=== PATIENT | female | born 1985 | race Caucasian/White ===

== ENCOUNTER 2017-04-07 22:19 | Emergency (ER) | payer OTHER ==
[2017-04-07 22:27] VITALS: BP 138/91
[2017-04-07] MEDS ORDERED: FAMOTIDINE 20 MG TABLET PO ONE (22:46)
[2017-04-07] MEDS ORDERED: predniSONE 20 MG TABLET PO ONE (22:46)
--- NOTE | 2017-04-07 22:46 | ERNOTE ---
Integumentary HPI - Narrative Date of Service: 04/07/17 - General Presenting Symptoms: rash Time Seen by Provider: 04/07/17 22:40 Source: patient Exam Limitations: no limitations - Immun/Allergies/Home Medications Immunizations: IMMUNIZATION HX Immunizations Up to Date Yes History of Influenza Vaccine Yes Allergies/Adverse Reactions: Allergies Allergy/AdvReac Type Severity Reaction Status Date / Time Sulfa (Sulfonamide Allergy Mild Hives Verified 04/07/17 22:27 Antibiotics) [Sulfa(Sulfonamide Antibiotics)] Home Medications: HOME MEDICATIONS Citalopram Hydrobromide [Celexa] 20 mg PO DAILY 01/15/13 [Last Taken 02/14/15 20 mg] Multivitamin [Multivitamins] 1 each PO DAILY 01/15/13 [Last Taken 02/14/15 1 tablet] Topiramate [Topamax] 50 mg PO DAILY 01/15/13 [Last Taken 02/14/15 50 mg] Levonorgestrel-Ethin Estradiol [Lutera-28 Tablet] 1 each PO DAILY 02/15/15 [ Last Taken 02/14/15 1 tab] diphenhydrAMINE HCL [Benadryl] 50 mg PO HS PRN 02/15/15 [Last Taken 02/14/15 1 tablet] - Pain Pain Score: 0 - History of Present Illness Narrative: 5 days ago was gardening and cutting some tall grass at her home. She developed a rash on her forearms bilaterally. It was localized and remained so. Over the period it has become more intensely puritic. Now has some vesicles and serous drainage. She says lesions started out as scratches. Location: Reports: upper extremity Quality: Reports: itching Severity: moderate Prior Treatment: Reports: other - Has been taking 50 mg benadryl every 4 hours and topical hydrocortisone cream without relief. Review of Systems - Review of Systems Constitutional: Present: no symptoms reported EYE: Present: no symptoms reported ENT: Present: no symptoms reported Respiratory: Present: no symptoms reported Cardiology: Present: no symptoms reported Gastrointestinal/Abdominal: Present: no symptoms reported Musculoskeletal: Present: no symptoms reported Neurological: Present: no symptoms reported - Patient's Past Medical History Patient History - Medical: Migraines Patient History - Cancer: No Hx of Cancer Patient History - Surgical Procedures: Appendectomy, Cholecystectomy Patient History - Other: None - Family History Mom Family History - Cardiac/Respiratory: No pertinent hx Dad Family History - Cardiac/Respiratory: Hypertension Grandfather on Dad's side Family History - Medical: Family History - Cardiac/Respiratory: Myocardial Infarction - Social History Living Situations: home Abuse History: No History of abuse Psych History: No pertinent hx Smoking Status: Never smoker Patient requests Smoking Cessation Consult: No Initiate information on Smoking Cessation: No Alcohol Use: occasionally Drug Use: none - Immunizations Immunizations Up to Date: Yes History of Influenza Vaccine: Yes Physical Exam - Physical Exam General Appearance: Present: wd/wn, alert, no apparent distress Eye Exam: Normal inspection: bilateral Ears, Nose, Throat: Present: normal ENT inspection Neck: Present: normal inspection Respiratory: Present: no respiratory distress, normal breath sounds, lungs clear Cardiovascular/Chest: Present: regular rate, rhythm Extremity Exam: Present: other - Bilateral volar forearm linear raised erythematous cicumscribed rash with small interspersed vesicles. Neurological Exam: Present: alert, normal mood/affect, no motor/sensory deficits ED Progress - Vital Signs Vital Signs: Vital Signs 04/07/17 22:23 Temperature 36.6 C Pulse Rate 85 Respiratory 18 Rate Blood Pressure 138/91 O2 Sat by Pulse 100 Oximetry - Progress/Reassessment Chief Complaint: Rash Plan - Plan Plan: Continue benadryl. Use hydrocortison ointment. May add calamide cream Take pepcid 20 mg bid and prednisone 40 mg x 2 days then 20 mg x 2 days then 10 mg x 1 day then DC Departure Clinical Impression: Rash of unknown cause - Departure Disposition: Home self-care Condition: Good Instructions: Contact Dermatitis, Rjop-[id number] Additional Instructions: Continue benadryl Use pepcid 20 mg twice a day for 3 days. Use cortisone ointment over area May add calamide as needed Take prednisone 40 mg daily x 2 days then 20 mg daily x 2 days, then 10 mg x 1 day then DC Follow up with PCP if not improved. Referrals: Arnulfo Hamm MD [Primary Care Provider] -
[2017-04-07] MEDS ORDERED: FAMOTIDINE 20 MG TABLET ONE (22:48)
[2017-04-07] MEDS ORDERED: predniSONE 20 MG TABLET ONE (22:48)
== END 2017-04-07 23:01 | disposition home or self-care (01) ==
LOC: ER 22:19
DX: R21 Rash and other nonspecific skin eruption (principal)

== ENCOUNTER 2019-02-15 04:56 | Inpatient (IN) ==
--- NOTE | 2019-02-14 10:21 | HP ---
Chief Complaint - Chief Complaint Date of Service: 02/14/19 Time of Service: 10:12 Chief Complaint: C/S for breech presentation History of Present Illness: 34 yo at 38 6/7 wks scheduled for primary c/s tomorrow am due to persistent breech presentation. This complicated by maternal history of congenital heart defect (VSD vs ASD) with surgical repair and resulting murmur and arrhythmia. 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 [id number]. [place] teeth extracted Onset Date: ~2003 Surgical History: Surgical History (Updated 07/26/18 @ 11:40 by North Mondragon DO) History of heart surgery (Chronic) H/O arthroscopic knee surgery Onset Date: ~2004 Right-x2, 2005, 2006 H/O dilation and curettage Onset Date: 11/25/10 D&C, and Suction [place] 06/29/11- Missed H/O heart surgery Onset Date: ~1991 ASD repair H/O nasal septoplasty Onset Date: ~2006 Hx laparoscopic cholecystectomy Onset Date: 10/27/11 Tinguely Hx of appendectomy Onset Date: 11/25/10 Tinguely Suction Curettage Onset Date: 06/29/11 Family History: Family History (Updated 07/26/18 @ 10:39 by Shelly Trinidad RN) Grandfather CHF (congestive heart failure) Sister Asthma Brother Asthma Father Hypertension Hypercholesteremia Grandmother Hypertension COPD (chronic obstructive pulmonary disease) Mother Alive and well Grandfather Lung cancer Grandmother COPD (chronic obstructive pulmonary disease) Other Heart disease Social History: Preferred Language Egyptian Smoking Status Never smoker Abuse History No History of abuse Psych History No pertinent hx (Last Updated 02/14/19 @ 09:28 by North Mondragon DO) No Social History Section defined Review Of Systems (GEN) - Review of Systems Generalized/Overall Review: Present: No Symptoms Reported EENTM: Present: No Symptoms Reported Respiratory: Present: No Symptoms Reported Cardiac: Present: No Symptoms Reported Abdominal: Present: No Symptoms Reported Genitourinary: Present: No Symptoms Reported Musculoskeletal: Present: No Symptoms Reported Neurological: Present: Numbness, Parasthesia, Tingling - carpal tunnel s/s R>L Skin: Present: Other - tight from edema Endocrine: Present: No Symptoms Reported Immunizations: IMMUNIZATION HX Immunizations Up to Date Yes History of Influenza Vaccine Yes Allergies/Adverse Reactions: Allergies Allergy/AdvReac Type Severity Reaction Status Date / Time Sulfa (Sulfonamide Allergy Mild Hives Verified 02/14/19 09:04 Antibiotics) [Sulfa(Sulfonamide Antibiotics)] house dust mite Allergy Rhinitis Verified 02/14/19 09:04 meloxicam [From Mobic] Allergy Generalized Verified 02/14/19 09:04 edema mold Allergy Rhinitis Verified 02/14/19 09:04 Home Medications: HOME MEDICATIONS diphenhydrAMINE HCL [Benadryl] 50 mg PO HS PRN 02/15/15 [Last Taken 02/14/15 1 tablet] folic acid 1 mg tablet 1 mg PO DAILY 07/26/18 [Last Taken Unknown] vitamin,calcium,pkzijacv-kztg-kqzok acid tablet 1 tab PO DAILY 07/26/18 [Last Taken Unknown] breast pump See Dose Instructions .ROUTE .MEDSUPPLY #1 ea 09/10/18 [Last Taken Unknown] vitamin B complex tablet 1 tab PO DAILY 09/13/18 [Last Taken Unknown] Exam - Exam Vital Signs: 02/14/19 Height 1.66 m 02/14/19 Weight 90.8 kg 02/14/19 Body Mass Index (BMI) 32.9 02/14/19 Blood Pressure 135/84 02/14/19 Blood Pressure Position Sitting 02/14/19 Respiratory Rate 12 02/14/19 Pulse Rate 83 02/14/19 Temperature 36.6 C 02/14/19 Temperature Source Tympanic 02/14/19 O2 Sat by Pulse Oximetry 100 02/14/19 Oxygen Delivery Method room air Constitutional: Present: Alert, Oriented x3, Cooperative, No distress ENT Exam: Present: hearing grossly normal Neck: Present: non-tender. Absent: lymphadenopathy (R), lymphadenopathy (L) Breasts: Present: Exam deferred Respiratory: Present: lungs clear, no respiratory distress Cardiovascular/Chest: Present: normal peripheral pulses, regular rate, rhythm, edema Abdomen: Present: soft, nontender, no rebound tenderness, other - gravid /Rectal: Present: Exam deferred Extremity: Present: no calf tenderness, lower extremity edema - 2+ Skin Exam: Present: normal color, warm/dry, no cyanosis Neurologic: Present: alert, normal mood/affect, oriented x 3 Appearance: Present: appropriate appearance, appropriate insight Eye contact: Present: cooperative, good eye contact Thoughts: Present: normal thought pattern Assessment/Plan - Assessment/Plan (1) Breech presentation, no version Assessment: Admit for primary LTCS. All questions answered. Surgery scheduled for 02/15/19 am. Problem: Acute (2) History of heart surgery Problem: Chronic
[2019-02-15] MEDS ORDERED: RINGER'S SOLUTION,LACTATED 1,000 ML IV PRN ×2 (04:57)
[2019-02-15] MEDS ORDERED: ceFAZolin SODIUM/DEXTROSE,ISO 2 GM/50 ML BAG IV ONE (04:57)
[2019-02-15] MEDS ORDERED: OXYTOCIN 20 UNITS in RINGER'S SOLUTION,LACTATED 1,000 ML IV ONE (04:57)
--- NOTE | 2019-02-15 07:04 | ANES ---
Anesthesia Pre Procedure Eval HOME MEDICATIONS diphenhydrAMINE HCL [Benadryl] 50 mg PO HS PRN 02/15/15 [Last Taken 02/14/15 1 tablet] folic acid 1 mg tablet 1 mg PO DAILY 07/26/18 [Last Taken Unknown] vitamin,calcium,dhabfnef-cszo-ijmtd acid tablet 1 tab PO DAILY 07/26/18 [Last Taken Unknown] breast pump See Dose Instructions .ROUTE .MEDSUPPLY #1 ea 09/10/18 [Last Taken Unknown] vitamin B complex tablet 1 tab PO DAILY 09/13/18 [Last Taken Unknown] Allergies/Adverse Reactions: Allergies Allergy/AdvReac Type Severity Reaction Status Date / Time Sulfa (Sulfonamide Allergy Mild Hives Verified 02/15/19 05:08 Antibiotics) [Sulfa(Sulfonamide Antibiotics)] house dust mite Allergy Rhinitis Verified 02/15/19 05:08 meloxicam [From Mobic] Allergy Generalized Verified 02/15/19 05:08 edema mold Allergy Rhinitis Verified 02/15/19 05:08 - Planned Procedure Planned Procedure: Section Medication List Reviewed:: Yes Allergies Verified: Yes Medical History (Updated 02/14/19 @ 10:21 by North Mondragon DO) Hx of migraines (Chronic) Seasonal allergic rhinitis Allergy to Beets Onset Date: Unknown Hives Arrhythmia Onset Date: Unknown Heart murmur Onset Date: Unknown IBS (irritable bowel syndrome) Onset Date: Unknown Joint pain Onset Date: Unknown Migraine Onset Date: 10/12/12 Tattoo Onset Date: Unknown Wears glasses Onset Date: Unknown Appendicitis Onset Date: 11/25/10 Atrial septal defect Onset Date: ~1991 Repaired in [place] 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 [id number]. [place] teeth extracted Onset Date: ~2003 Surgical History (Updated 02/14/19 @ 10:21 by North Mondragon DO) History of heart surgery (Chronic) H/O arthroscopic knee surgery Onset Date: ~2004 Right-x2, 2005, 2006 H/O dilation and curettage Onset Date: 01/27/11 D&C, and Suction [place] 06/29/11- Missed H/O heart surgery Onset Date: ~1991 ASD repair H/O nasal septoplasty Onset Date: ~2006 Hx laparoscopic cholecystectomy Onset Date: 10/27/11 Tinguely Hx of appendectomy Onset Date: 11/25/10 Tinguely Suction Curettage Onset Date: 06/29/11 Family History (Updated 07/26/18 @ 10:39 by Shelly Trinidad RN) Grandfather CHF (congestive heart failure) Sister Asthma Brother Asthma Father Hypertension Hypercholesteremia Grandmother Hypertension COPD (chronic obstructive pulmonary disease) Mother Alive and well Grandfather Lung cancer Grandmother COPD (chronic obstructive pulmonary disease) Other Heart disease - Family Anesthesia History Family History:: no untoward family reactions to anesthesia, no familial bleeding tendencies, no family history of clotting disorders, no family history of premature - Airway/Neck/Teeth Within Normal Limits:: Yes Teeth Condition: intact Neck Exam: full range of motion Mallampatti Score: 3 Thyromental (T-M) distance: > 6 cm Mandibulo Hyoid distance: > 3 cm - Respiratory Respiratory Physical: lungs clear Smoking Status: Never smoker Sleep Apnea currently treated: No Sleep Apnea by current assessment: No - some snoring during - Cardiovascular Cardiac History: other - foraman ovalie repair Tolerate Activity: Fair Heart Sounds: S1 & S2, Regular - Anesthesia Assessment and Plan ASA Class: PS, II Anesthesia Type Plan: Block - Bilateral TAP block for post op pain relief, Spinal
[2019-02-15 07:21] LABS: Cocaine Ur Negative (NEGATIVE); Urine Barbiturate Negative (NEGATIVE); Urine Benzodiazepines Negative (NEGATIVE); Urine Opiates Negative (NEGATIVE); Urine PCP Negative (NEGATIVE); Urine THC Negative (NEGATIVE)
--- NOTE | 2019-02-15 09:58 | OR ---
Operative Report - Dictated Report Narrative: Indication: 34-year-old 3 para 1 at 39 weeks gestation age presents for primary section due to breech presentation, declining attempt at external cephalic version. Status: Planned Pre Operative Diagnosis: Intrauterine at 39 weeks. Breech presentation Post Operative Diagnosis: Same. Loose nuchal cord 1 Procedure Preformed: Primary Low Transverse Section Surgeon: Keke Mondragon DO Remote Ruby On Rails Developer: OR Staff Anesthesia: Spinal ,TAP block Estimated Blood Loss: 400 mL Urine Output: 200 mL of clear urine Fluids Given: 1100 mL of crystalloid Drains: Thurman to gravity Surgical Complications: None Specimens: Placenta to freezer Findings: Female born at 0905 on 02/15/2017 with Apgars 8 and 8, weighing 3215 g in cruz breech presentation with loose nuchal cord 1. Normal uterus, tubes, ovaries. Technique: The patient was taken to the operating room and placed in dorsal supine position with a left lateral tilt. After adequate spinal anesthesia, thurman catheter insertion,SCDs placed, and 2 g of Ancef given preoperatively, the abdominal cavity was entered via a modified Miguel A-Smith incision. A transverse incision was made in the lower uterine segment and extended laterally and upwardly with digital traction. Clear fluid was noted upon amniotomy. The was delivered easily in cruz breech presentation using usual maneuvers. Loose nuchal cord was reduced with delivery of head. The cord was clamped and cut and infant was handed off to awaiting power supply engineer. The placenta was allowed to deliver spontaneously. The uterus was cleared of clot and debris. Uterine incision was closed with 0 Vicryl using a running stitch. A second imbricating layer was placed. Excellent hemostasis was noted. The peritoneum was closed with a running 3-0 Monocryl. The same suture was used to approximate the rectus and pyramidalis muscles. The fascia was closed with a running 0 Vicryl. The subcutaneous layer was closed with a running 3-0 Monocryl. The same suture was used to approximate the subdermal layer. The skin was closed with a running 4-0 Monocryl and Dermabond. Sponge, lap, needle, and instrument count were correct x 2. Disposition: The patient was transferred to post anesthesia care unit in good condition
[2019-02-15] MEDS ORDERED: ONDANSETRON HCL/PF 2 MG/ML VIAL IV PRN (10:01)
[2019-02-15] MEDS ORDERED: oxyCODONE HCL/ACETAMINOPHEN 1 TAB TABLET PO PRN (10:01)
[2019-02-15] MEDS ORDERED: BISACODYL 10 MG SUPP.RECT RC PRN (10:01)
[2019-02-15] MEDS ORDERED: KETOROLAC TROMETHAMINE 15 MG/ML VIAL IV PRN (10:01)
[2019-02-15] MEDS ORDERED: SIMETHICONE 80 MG TAB.CHEW PO PRN (10:01)
[2019-02-15] MEDS ORDERED: SENNOSIDES 8.6 MG TABLET PO PRN (10:01)
--- NOTE | 2019-02-15 10:08 | ANES ---
Post Anesthesia Discharge - Transfer of Care Transfer of Care handoff given to nurse: Yes - Discharge from PACU Discharge from PACU when meets criteria: Yes - Comfortable post TAPblock
--- NOTE | 2019-02-15 10:11 | ANES ---
Anesthesia Procedure Note Procedure Note: ANESTHESIA PROCEDURE NOTE Date of Procedure: [02/15/2019] Time of procedure: 9:50 AM. Performed by: MYRNA Olsen CRNA, MSN Workday Consultant: Jaimie Smith RN. Preprocedure diagnosis: Post section pain. Post procedure diagnosis: Same. Procedure: Bilateral TAP block Indications: Post section pain relief. Findings: See below. Details of the procedure: The patient was brought to PACU and placed in the supine position. The patient was prepped with chlorhexidine and using ultrasound guidance the 3 abdominal muscular planes were identified and lidocaine 1% was infiltrated to the skin of the intended injection site. Under ultrasound guidance the the internal oblique and transverse this abdominis muscle layers were approached with visualization of a 4 inch block needle until the tip of the needle rested in the plane between the muscles. 25 mL bupivacaine 0.5% with 1-200,000 epinephrine was injected and the procedure was repeated on the other side. Please see radiology/ultrasound report for details and images of the procedure. EBL: 0 Fluids: N/A. Specimen: N/A. Post procedure condition: The patient tolerated the procedure well. No complications were noted. Thank you for this consultation. Glenn Quinones CRNA, ARNP, MSN
[2019-02-15] MEDS ORDERED: [UNRECOGNIZED DRUG - OTHER] SCH (10:15)
[2019-02-15] MEDS: oxyCODONE HCL/ACETAMINOPHEN 1 TAB TABLET PO PRN ×3 (13:14→21:29)
[2019-02-15] MEDS: IBUPROFEN 800 MG TABLET PO PRN ×2 (13:14→21:29)
[2019-02-15] MEDS: ENOXAPARIN SODIUM 40 MG/0.4 ML SYRG SC SCH (18:07)
[2019-02-15] MEDS: DOCUSATE SODIUM 100 MG CAPSULE PO SCH (21:29)
[2019-02-16] MEDS: oxyCODONE HCL/ACETAMINOPHEN 1 TAB TABLET PO PRN ×3 (03:02→18:12)
[2019-02-16] MEDS: IBUPROFEN 800 MG TABLET PO PRN ×3 (04:32→20:45)
[2019-02-16] MEDS: PRENATAL VITS96/IRON FUM/FOLIC 1 TAB TABLET PO SCH (09:51)
[2019-02-16] MEDS: DOCUSATE SODIUM 100 MG CAPSULE PO SCH ×2 (09:51→20:44)
--- NOTE | 2019-02-16 11:41 | PN ---
Subjective - Date and Time Seen Date: 02/16/19 Time: 11:38 Objective - Vitals Vitals: Last Vital Signs Temp 36.5 C 02/16/19 10:22 Pulse 80 02/16/19 10:22 Resp 18 02/16/19 10:22 BP 126/61 02/16/19 10:22 Pulse Ox 99 02/16/19 10:22 Patient denies complaints. Tolerating regular diet. Ambulating without difficulty. Pain well controlled. Breast-feeding. Lochia wnl. Abdomen - soft, appropriately tender Incision - clean, dry, intact Uterus - firm, at umbilicus -1 No calf tenderness Impression: Post op day #1 s/p primary section for breech presentation. Plan: Continue routine post-operative/ care Cauti Physician Documentation - Urinary Catheter Management Urethral (Kingsley) Date of Insertion: 02/15/19 Time of Insertion: 08:45 Assessment/Plan - Problems/Diagnosis (1) Breech presentation, no version Problem: Acute (2) History of heart surgery Problem: Chronic
[2019-02-16] MEDS: ENOXAPARIN SODIUM 40 MG/0.4 ML SYRG SC SCH ×2 (20:10→20:44)
[2019-02-17] MEDS: IBUPROFEN 800 MG TABLET PO PRN ×3 (04:14→20:28)
--- NOTE | 2019-02-17 08:29 | PN ---
Subjective - Date and Time Seen Date: 02/17/19 Time: 08:28 Objective - Vitals Vitals: Last Vital Signs Temp 36.3 C 02/16/19 19:25 Pulse 68 02/16/19 19:25 Resp 16 02/16/19 19:25 BP 132/60 02/16/19 19:25 Pulse Ox 99 02/16/19 19:25 Patient denies complaints. Ambulating well. Tolerating regular diet. Pain well controlled. Breast feeding and bonding well. Lochia wnl. Abdomen - soft, appropriately tender Incision - clean, dry, intact Uterus - firm, at umbilicus -2 No calf tenderness Impression: Post op day #2 s/p primary section. Plan: Continue routine post-operative/ care Cauti Physician Documentation - Urinary Catheter Management Urethral (Kingsley) Date of Insertion: 02/15/19 Time of Insertion: 08:45 Assessment/Plan - Problems/Diagnosis (1) Breech presentation, no version Problem: Acute (2) History of heart surgery Problem: Chronic
[2019-02-17] MEDS: PRENATAL VITS96/IRON FUM/FOLIC 1 TAB TABLET PO SCH (09:50)
[2019-02-17] MEDS: DOCUSATE SODIUM 100 MG CAPSULE PO SCH ×2 (09:50→20:28)
[2019-02-17] MEDS: ENOXAPARIN SODIUM 40 MG/0.4 ML SYRG SC SCH (20:28)
[2019-02-18] MEDS: oxyCODONE HCL/ACETAMINOPHEN 1 TAB TABLET PO PRN ×2 (07:00→10:13)
[2019-02-18] MEDS: DOCUSATE SODIUM 100 MG CAPSULE PO SCH ×2 (07:00→10:13)
[2019-02-18] MEDS: IBUPROFEN 800 MG TABLET PO PRN (07:00)
[2019-02-18] MEDS: PRENATAL VITS96/IRON FUM/FOLIC 1 TAB TABLET PO SCH ×2 (07:00→10:13)
[2019-02-18 07:10] VITALS: BP 140/73
--- NOTE | 2019-02-18 09:15 | PN ---
Subjective - Date and Time Seen Date: 02/18/19 Time: 09:14 Objective - Vitals Vitals: Last Vital Signs Temp 36.5 C 02/18/19 06:56 Pulse 60 02/18/19 06:56 Resp 18 02/18/19 06:56 BP 140/73 H 02/18/19 06:56 Pulse Ox 100 02/18/19 06:56 Patient denies complaints. Ambulating without difficulty. Tolerating regular diet. Pain well controlled. Breast feeding Lochia wnl. Abdomen - soft, appropriately tender Incision - clean, dry, intact Uterus - firm, at umbilicus -3 No calf tenderness Impression: Post op day #3 s/p primary section for breech presentation. Plan: Routine discharge instructions Cauti Physician Documentation - Urinary Catheter Management Urethral (Kingsley) Date of Insertion: 02/15/19 Time of Insertion: 08:45 Assessment/Plan - Problems/Diagnosis (1) Breech presentation, no version Problem: Acute (2) History of heart surgery Problem: Chronic
--- NOTE | 2019-02-21 16:42 | PN ---
Progess Note - Interim Date: 02/21/19 Time: 16:42 History for MU Definition: * The number of deliveries resulting in a live the patient experienced prior to current hospitalization * The previous delivery of live twins or any live multiple gestation is considered one live event. *If primagravida or nulliparous is documented select zero for the number of previous live births. Live Events: 0
== END 2019-02-18 10:30 | disposition home or self-care (01) | DRG 788 ==
LOC: OB 04:56
PROVIDERS: ADMIT Family Medicine; ATTEND Obstetrics & Gynecology
CPT/HCPCS: 59025; 80307